=== PATIENT | female | born 1995 | race Caucasian/White ===

== ENCOUNTER 2018-08-19 00:14 | Inpatient (IN) ==
[2018-08-19] MEDS ORDERED: NS 1,000 ML IV ONE ×3 (00:31→14:49)
[2018-08-19] MEDS ORDERED: ZOFRAN IV ONE (00:54)
[2018-08-19 01:06] LABS: BASO# 0.03 X1000 (0.0-0.2); BASO% 0.2 % (0.0-0.8); EOS# 0.04 X1000 (0.0-0.7); EOS% 0.3 % (0.0-10.0); HEMOGLOBIN 14.5 g/dL (12.0-16.0); IMM GRAN# 0.07 X1000 (0.0-0.04); IMM GRAN% 0.5 % (0.0-0.5); LYMPH# 2.76 X1000 (1.2-3.4); LYMPH% 21.1 % (20.5-51.1); MONO# 0.71 X1000 (0.11-0.59); MONO% 5.4 % (1.7-9.3); MPV 9.4 FL (7.4-10.4); NEUT# 9.47 X1000 (1.4-6.5); NEUT% 72.5 % (42.2-75.2); PLT 331 X1000 (130-400); RDW 15.1 % (11.5-14.5); WBC 13.08 X1000 (4.8-10.8)
[2018-08-19 01:09] LABS: ALLEN TEST YES; BE -24.3 mmoll (-3.0-3.0); BLOOD TYPE ARTERIAL; HCO3-(ACT) 5.6 mmoll (20.0-26.0); O2(CT) 15.9 mL/dL (15.0-23.0); SAMPLE BLOOD; SAO2 85.9 % (95.0-100.0); THB 13.6 g/dL (11.5-17.4)
[2018-08-19 01:12] LABS: MODALITY ROOM AIR
[2018-08-19 01:14] LABS: PCO2(98.6) 14 mmHg (35-45); pH(98.6) 7.06 (7.35-7.45)
[2018-08-19 01:15] LABS: O2HB 83.3 % (95.0-99.0); PO2(98.6) 44 mmHg (60-100)
[2018-08-19] MEDS ORDERED: HUMULIN R IV ONE (01:17)
[2018-08-19 01:31] LABS: INR 1.04; PROTIME 14.5 Seconds (11.0-16.0)
[2018-08-19 01:32] LABS: PTT 27.1 Seconds (22.3-41.8)
[2018-08-19 01:40] LABS: ESTIMATED GFR > 60
[2018-08-19 01:43] LABS: AGAP 34; ALB/GLOB RATIO 1.2; ALBUMIN 4.5 g/dL (3.5-5.0); ALKALINE PHOSPHATASE 138 U/L (32-104); BUN 4 mg/dL (8-22); CALCIUM 9.3 mg/dL (8.8-10.2); CHLORIDE 98 mmol/L (98-107); CK PROFILE 57 U/L (24-173); COSMO 285; CREATININE 0.9 mg/dL (0.5-0.9); GLUCOSE 387 mg/dL (70-104); GOT 11 U/L (10-30); GPT 13 U/L (10-36); LIPASE 16 U/L (13-60); MAGNESIUM 1.7 mg/dL (1.5-2.7); PHOSPHORUS 2.9 mg/dL (2.7-4.5); POTASSIUM 4.7 mmol/L (3.5-5.1); SODIUM 136 mmol/L (136-145); TCO2 4 mmol/L (25-35); TOTAL BILIRUBIN 0.23 mg/dL (0.20-1.00); TOTAL PROTEIN 8.2 g/dL (6.3-8.3)
[2018-08-19 01:51] LABS: ACETONE SERUM MODERATE (NEGATIVE)
[2018-08-19 01:59] LABS: URINE SOURCE CLEAN CATCH
[2018-08-19 02:07] LABS: BILIRUBIN URINE NEGATIVE (NEGATIVE); BLOOD URINE TRACE (NEGATIVE); COLOR STRAW; GLUCOSE URINE >1000 mg/dL (NEGATIVE); KETONE URINE >150 mg/dL (NEGATIVE); LEUKOCYTES URINE TRACE (NEGATIVE); NITRITE URINE NEGATIVE (NEGATIVE); PH URINE 5.5; PROTEIN URINE 50 mg/dL (NEGATIVE); SP GRAVITY URINE 1.015; TURBIDITY URINE CLEAR (CLEAR); UR EPITHELIAL CELLS <10 /HPF (<10); URINE BACTERIA NEGATIVE /HPF; URINE RBC <10 /HPF (<10); URINE WBC <10 /HPF (<10); UROBILINOGEN URINE NORMAL (NORMAL)
[2018-08-19] MEDS ORDERED: POTASSIUM CHLORIDE 40 MEQ/SWI 40 MEQ/100 ML IVPB IV PRN (02:15)
[2018-08-19] MEDS ORDERED: ZOFRAN IV PRN ×2 (02:15→02:19)
[2018-08-19] MEDS ORDERED: NS 1,000 ML IV SCH (02:15)
[2018-08-19] MEDS ORDERED: HUMULIN R 100 UNIT in NS 99 ML IV SCH (02:15)
[2018-08-19] MEDS: NS 1,000 ML IV SCH ×4 (02:15→05:15)
[2018-08-19] MEDS ORDERED: D50W SYRINGE IV PRN (02:15)
[2018-08-19] MEDS ORDERED: ZOFRAN PO PRN (02:15)
--- NOTE | 2018-08-19 02:38 | PROVIDER DOCUMENTATION ---
This chart was entered by Sabrina Juarez Scribe, acting as scribe for Bong Fernandez MD. HPI-General Adult - General Chief Complaint: High Blood Sugar Stated Complaint: BLOOD SUGAR FLUCTUATING, UNABLE TO EAT Time Seen by Provider: 08/19/18 00:30 Source: patient, family Allergies/Adverse Reactions: Patient Allergies Allergy/AdvReac Type Severity Reaction Status Date / Time No Known Allergies Allergy Verified 07/11/17 20:28 Home Medications: Home Medication List Medication Instructions Recorded Confirmed Last Taken Type Insulin Aspart [Novolog] 5 unit SQ TID 04/12/17 07/11/17 04/11/17 19:30 History Ibuprofen [Motrin] 800 mg PO Q8H PRN PRN #20 tab 07/11/17 Unknown Rx Insulin Detemir [Levemir Flextouch] 3 ml SUBQ QHS 07/11/17 07/11/17 Unknown History Omeprazole 20 mg PO DAILY #20 tablet. 07/11/17 Unknown Rx Ibuprofen 800 mg PO TID 10 Days #30 tab 08/19/18 Unknown Rx - History of Present Illness -Gen Adult Nature of Presenting Problems: 23 yof presents to er w/family w/ c/o high blood sugar, intermittent times of heavy breathing, abd pain and nausea and vomiting. family at bedside states that she believes pt may have caught stomach virus that had affected household. pt states she has not eaten anything today. pt denies cp, fever, and chills. pt has hx of dm type 1. Review of Systems - Adult - REVIEW OF SYSTEMS - ADULT Constitutional: reports: no symptoms reported. denies: chills, fever Eyes: reports: no symptoms reported Ears, Nose, Mouth & Throat: reports: no symptoms reported Cardiovascular: reports: no symptoms reported. denies: chest pain Respiratory: reports: see HPI, other (heavy breathing). denies: chronic cough, cough, excessive sputum production, hemoptysis, pleurisy Gastrointestinal: reports: see HPI, abdominal pain, nausea, poor appetite, vomiting. denies: constipation, diarrhea, difficulty swallowing, rectal bleeding Genitourinary: reports: no symptoms reported. denies: dysuria Musculoskeletal: reports: no symptoms reported Integumentary: reports: no symptoms reported Neurological: reports: no symptoms reported Psychiatric: reports: no symptoms reported Endocrine: reports: no symptoms reported Hematologic/Lymphatic: reports: no symptoms reported Allergic/Immunologic: reports: no symptoms reported All Other Systems: Reviewed and Negative Past History - Adult - PAST MEDICAL HISTORY-ADULT Review of Records: reports: Old Records Reviewed, Nursing Assessment Review, Medications Reviewed, Social history reviewed & non-contributory. Major Childhood Illnesses: reports: denies history Cardiovascular: reports: denies history Respiratory: reports: denies history Gastrointestinal: reports: denies history Obstetrical/Gynecological: reports: denies history Genitourinary: reports: denies history Musculoskeletal: reports: denies history Neurological: reports: denies history Endocrine/Immune: reports: Diabetes Diabetes Type: Type 1 Diabetes controlled by:: Insulin Dependent Other Conditions: reports: denies history - PRIOR SURGERIES/PROCEDURES Surgical/Procedure History: reports: , tonsillectomy - IMMUNIZATION STATUS Childhood Immunizations: See Nurse Assessment Flu Vaccine: See Nurse Assessment - FAMILY HISTORY Family History: reviewed, not pertinent - SOCIAL HISTORY Smoking: non-smoker Substance Use: none/never Physical Exam-General - PHYSICAL EXAM-ADULT Initial Vital Signs Reviewed: Yes - CONSTITUTIONAL General Appearance: alert, moderate distress. negative: lethargic, slow to respond, obtunded - EYES Eyes: PERRL/EOMI - HEAD, EARS, NOSE, MOUTH & THROAT HENMT: normocephalic/atraumatic, moist mucous membranes, normal ENT inspection - NECK Neck: non-tender, full range of motion, supple, normal inspection - RESPIRATORY Respiratory: chest non-tender, lungs clear, normal breath sounds - CARDIOVASCULAR Cardiovascular: normal peripheral pulses, regular rate, rhythm - GASTROINTESTINAL (ABDOMEN) Abdominal Exam: normal bowel sounds, non tender, soft, no organomegaly, no pulsatile mass - LYMPHATIC Lymphatic: no adenopathy - MUSCULOSKELETAL Back Exam: normal inspection, no CVA tenderness, no vertebral tenderness Extremity: normal range of motion, non-tender, normal inspection Peripheral Pulses: radial (R): 2+, radial (L): 2+ - SKIN Integumentary: normal turgor, warm/dry, diaphoresis, erythema (cheeks flushed). negative: cyanosis, decubitus, dependent lividity, ecchymosis, rash, tenderness - NEUROLOGIC Neurologic: grossly normal, no motor/sensory deficits - PSYCHIATRIC Psych/Mental Status: normal mood/affect, normal thought content, normal thought process, oriented x 3, disheveled Progress - PLAN OF CARE/RESULTS Progress/Plan/Lab Results: Vital Signs - 8 hr 08/19/18 00:18 Temperature 97.6 F Pulse Rate 100 H Respiratory Rate 18 Blood Pressure 132/88 O2 Sat by Pulse Oximetry 99 Orders Category Date Time Status Finger Stick Blood Sugar (ED) DIRECTED Care 08/19/18 00:31 Active Saline Loc NOW Care 08/19/18 00:31 Active ABG [RESP] Routine Lab 08/19/18 00:42 Ordered CBC WITH ELECTRONIC DIFF [HEME] Stat Lab 08/19/18 00:31 Uncollected COMPREHENSIVE METABOLIC PANEL [CHEM] Stat Lab 08/19/18 00:31 Uncollected UA NIMS W/REFLEX CULT [URINALYSIS] Stat Lab 08/19/18 00:31 Uncollected URINALYSIS W/POSS RFLX CULT [URINALYSIS] Stat Lab 08/19/18 00:31 Uncollected 0.9% Sodium Chloride Inj [Ns] 1,000 ml Med 08/19/18 00:31 Active IV 999 mls/hr EKG [EKG] Stat Ther 08/19/18 00:31 Ordered A/P: DKA, care ransfered to Dr Pichardo @ 0230 Result Diagrams: 08/19/18 00:53 08/19/18 00:53 - CHANGE OF SHIFT REPORT (ED Provider) 1 Report Given and Care Transferred to:: Dr Pichardo Time of Transfer: 02:37 Departure - Departure Date of Disposition Decision: 08/19/18 Time of Disposition Decision: 02:37 DIAGNOSIS: DKA (diabetic ketoacidoses) Disposition: ADMITTED INPATIENT 09 Certified Medical Emergency: Emergent Condition: Critical - Critical Care Note This patient required my direct & personal management of CC.: Yes Total Time (mins): 47 Critical Care Statement: This patient required my direct personal management to treat or rule out processes, the absence of which, could potentiallly result in sudden, clinically significant life or limb threatening deterioration. Attestation - Physician/ SAIRA Attestation Patient care was provided by Advanced Practice Provider:: No The physician spent face to face time with patient:: Yes Advanced Practice Provider documentation review:: Supervising physician onsite and consulted in the evaluation and care of this patient. The physician did have a face to face encounter with the patient. This chart was documented by the indicated scribe, (Sabrina Juarez, Frantz) and accurately reflects the services I performed and decisions made by me, Bong Fernandez MD, as attested by the provider's signature.
--- NOTE | 2018-08-19 02:57 | HISTORY AND PHYSICAL ---
PRIMARY CARE PHYSICIAN: Dr. Busby. CHIEF COMPLAINT: Abdominal pain, nausea, vomiting x2 days. HISTORY OF PRESENTING ILLNESS: A 23-year-old female with a history of diabetes mellitus type 1 on insulin, who had presented to the emergency department with 2 days history of worsening nausea, vomiting, abdominal discomfort. She states that she could not keep anything down and was feeling bad. She was evaluated in the emergency department. She was found to be in DKA and due to her presenting symptoms she will need admission for further management. At the time of my examination, she denied any headache, fever, chills, chest pain, shortness of breath, hemoptysis or any weight changes, but complained of nausea, vomiting, abdominal discomfort. PAST MEDICAL HISTORY: Include diabetes mellitus type 1. PAST SURGICAL HISTORY: None. ALLERGIES: No known drug allergies. CURRENT MEDICATIONS: Include NovoLog 5 units t.i.d., omeprazole 20 mg p.o. daily. SOCIAL HISTORY: No history of smoking, alcohol or illicit drug use. FAMILY HISTORY: No history of coronary artery disease. REVIEW OF SYSTEMS: Fourteen point review of systems as listed in HPI. Other systems negative. PHYSICAL EXAMINATION: GENERAL: Cooperative, friendly female. She is resting more comfortably now. VITAL SIGNS: Temperature 97.6 degrees, pulse 100, respiration 18, blood pressure 132/88. HEENT: Atraumatic, normocephalic. Extraocular movements intact. PERRLA. NECK: No masses. CHEST: Clear to auscultation. CARDIOVASCULAR: Regular rate and rhythm. ABDOMEN: Soft. Positive bowel sounds. EXTREMITIES: No edema. NEUROLOGIC: She is awake, alert, oriented x3. GENITOURINARY: No bladder distention. SKIN: Has poor pallor and poor turgor. LABORATORIES AND STUDIES: WBCs 13.08, hemoglobin 14.5, hematocrit 44.0, platelets 331,000. ABG show pH of 7.06, pCO2 of 14. Sodium 136, potassium 4.7, chloride 98, CO2 is 4, BUN is 4, creatinine 0.9, glucose is 387. ASSESSMENT: This is a 23-year-old female with a history of diabetes mellitus type 1 who had presented to the emergency department with 2 days history of worsening abdominal pain, nausea, vomiting. She seemed moderately dehydrated. She was evaluated in the emergency department. Her laboratories were consistent with ketoacidosis. Subsequently, she will need admission for further management. Diabetic ketoacidosis. PLAN: 1. We will admit patient to [facility]. 2. We will start patient on insulin drip and IV fluids. 3. Continue with protocol for DKA. 4. We will continue to follow, and reassess and make further recommendation based on the patient's clinical course. cc: Quentin Loyd MD
[2018-08-19] MEDS: D5 NS 1,000 ML IV SCH ×2 (04:30→11:38)
[2018-08-19] MEDS: POTASSIUM CHLORIDE 10% LIQUID PO PRN ×3 (04:36→23:16)
[2018-08-19 05:23] LABS: ALLEN TEST YES; BE -19.9 mmoll (-3.0-3.0); BLOOD TYPE ARTERIAL; HCO3-(ACT) 9.4 mmoll (20.0-26.0); METHB 1.1 % (0.0-1.5); O2(CT) 16.7 mL/dL (15.0-23.0); PO2(98.6) 116 mmHg (60-100); SAMPLE BLOOD; SAO2 99.6 % (95.0-100.0); THB 12.1 g/dL (11.5-17.4)
[2018-08-19 05:25] LABS: pH(98.6) 7.17 (7.35-7.45)
[2018-08-19 05:26] LABS: MODALITY ROOM AIR; PCO2(98.6) 18 mmHg (35-45)
[2018-08-19 06:13] LABS: ESTIMATED GFR > 60
[2018-08-19 06:36] LABS: AGAP 23; BUN 3 mg/dL (8-22); CALCIUM 8.1 mg/dL (8.8-10.2); CHLORIDE 107 mmol/L (98-107); COSMO 276; CREATININE 0.7 mg/dL (0.5-0.9); GLUCOSE 204 mg/dL (70-104); MAGNESIUM 1.6 mg/dL (1.5-2.7); PHOSPHORUS 1.3 mg/dL (2.7-4.5); POTASSIUM 4.4 mmol/L (3.5-5.1); SODIUM 137 mmol/L (136-145); TCO2 7 mmol/L (25-35)
[2018-08-19 10:23] LABS: ALLEN TEST YES; BE -13.7 mmoll (-3.0-3.0); BLOOD TYPE ARTERIAL; HCO3-(ACT) 14.2 mmoll (20.0-26.0); METHB 0.7 % (0.0-1.5); O2(CT) 16.4 mL/dL (15.0-23.0); O2HB 97.3 % (95.0-99.0); PCO2(98.6) 24 mmHg (35-45); PO2(98.6) 112 mmHg (60-100); SAMPLE BLOOD; SAO2 99.5 % (95.0-100.0); THB 11.9 g/dL (11.5-17.4); pH(98.6) 7.28 (7.35-7.45)
[2018-08-19 10:24] LABS: MODALITY ROOM AIR
[2018-08-19 11:13] LABS: ESTIMATED GFR > 60
[2018-08-19 11:14] LABS: AGAP 17; BUN 3 mg/dL (8-22); CALCIUM 8.5 mg/dL (8.8-10.2); CHLORIDE 108 mmol/L (98-107); COSMO 271; CREATININE 0.7 mg/dL (0.5-0.9); GLUCOSE 177 mg/dL (70-104); MAGNESIUM 1.6 mg/dL (1.5-2.7); PHOSPHORUS 1.2 mg/dL (2.7-4.5); SODIUM 135 mmol/L (136-145); TCO2 10 mmol/L (25-35)
[2018-08-19 14:25] LABS: AGAP 10; BUN 2 mg/dL (8-22); CALCIUM 8.3 mg/dL (8.8-10.2); CHLORIDE 115 mmol/L (98-107); COSMO 279; CREATININE 0.6 mg/dL (0.5-0.9); ESTIMATED GFR > 60; GLUCOSE 185 mg/dL (70-104); MAGNESIUM 1.6 mg/dL (1.5-2.7); POTASSIUM 3.6 mmol/L (3.5-5.1); SODIUM 139 mmol/L (136-145); TCO2 14 mmol/L (25-35)
[2018-08-19 14:29] LABS: ALLEN TEST YES; BE -9.8 mmoll (-3.0-3.0); BLOOD TYPE ARTERIAL; HCO3-(ACT) 17.2 mmoll (20.0-26.0); O2(CT) 23.6 mL/dL (15.0-23.0); O2HB 96.7 % (95.0-99.0); PCO2(98.6) 28 mmHg (35-45); PO2(98.6) 108 mmHg (60-100); SAMPLE BLOOD; SAO2 99.1 % (95.0-100.0); THB 17.3 g/dL (11.5-17.4); pH(98.6) 7.32 (7.35-7.45)
[2018-08-19 14:38] LABS: PHOSPHORUS 0.8 mg/dL (2.7-4.5)
[2018-08-19 14:38] LABS: MODALITY ROOM AIR
[2018-08-19] MEDS ORDERED: MAGNESIUM SULFATE 2 GM/S.W.I. 2 GM/50 ML IVPB IV ONE (14:54)
[2018-08-19] MEDS ORDERED: POTASSIUM PHOSPHATE 30 MEQ in NS 250 ML IV ONE (14:54)
--- NOTE | 2018-08-19 15:13 | PROGRESS NOTE ---
DATE: 08/19/2018 Today Ms. Pacheco refers to be doing fairly okay. Ms Pacheco is a 23-year-old female who is known to have diabetes mellitus type 1, follows up with Dr. Busby, manager of human resources in [place]. Ms Pacheco is only on NovoLog 3 times per day so presently she is not on any long- acting. Anyway she seems to be doing fairly okay until recently she started having some nauseation and then found out that her sugars have been up and down, came to the emergency department was found to be in DKA. She seems to be doing a lot better now. OBJECTIVE: Vitals: Blood pressure is 114/79, pulse is 100, respiration is 20, temperature is 98.2 degrees. General: Ms. Pacheco is a 23-year-old female she is in bed, no distress. Mucosa is pink and moist. Anicteric. Acyanotic. Neck: Supple. Chest: Clear to auscultation. No crepitations, no rhonchi. Cardiovascular: Regular rate and rhythm. No murmurs, no rubs, no gallops. Abdomen: Soft, nontender. Bowel sounds present. Extremities: No pedal edema. Distal pulses present. AIRFREIGHT OPERATIONS AGENT: Patient is awake, alert, oriented. There is no focal neurological deficit. LABORATORY DATA: WBC is 13.08, hemoglobin is 14.5, platelet count of 331,000. Chemistry is also reviewed, sodium is 139, potassium is 3.6, chloride is 115, bicarb is 14, gap is down to 10, glucose is 185. ASSESSMENT: 1. Diabetic ketoacidosis. 2. Diabetes mellitus type 1. 3. Obesity with body mass index of 32.9. 4. Clinical volume depletion. 5. Hypophosphatemia secondary to diabetic ketoacidosis management. The plan is we are going to continue with the DKA protocol, we are going to replenish all the electrolytes abnormalities. For now I think Ms Pacheco can be given something she can drink and can take a popsicle. Once bicarb is above 18 and the gap continues to close then we will change the treatment according to the protocol. cc: MD PATI [place]
[2018-08-19 17:52] LABS: AGAP 8; BUN 2 mg/dL (8-22); CALCIUM 8.1 mg/dL (8.8-10.2); CHLORIDE 118 mmol/L (98-107); COSMO 284; CREATININE 0.6 mg/dL (0.5-0.9); ESTIMATED GFR > 60; GLUCOSE 179 mg/dL (70-104); MAGNESIUM 1.5 mg/dL (1.5-2.7); POTASSIUM 3.1 mmol/L (3.5-5.1); SODIUM 142 mmol/L (136-145); TCO2 16 mmol/L (25-35)
[2018-08-19 17:56] LABS: PHOSPHORUS 0.8 mg/dL (2.7-4.5)
[2018-08-19 22:53] LABS: AGAP 11; BUN 2 mg/dL (8-22); CALCIUM 8.2 mg/dL (8.8-10.2); CHLORIDE 113 mmol/L (98-107); COSMO 280; CREATININE 0.6 mg/dL (0.5-0.9); ESTIMATED GFR > 60; GLUCOSE 209 mg/dL (70-104); PHOSPHORUS 1.3 mg/dL (2.7-4.5); POTASSIUM 3.6 mmol/L (3.5-5.1); SODIUM 139 mmol/L (136-145); TCO2 15 mmol/L (25-35)
[2018-08-20] MEDS: D5 1/2 NS + KCL 20 MEQ 1,000 ML IV SCH ×3 (00:30→11:15)
[2018-08-20 01:25] LABS: AGAP 12; BUN 2 mg/dL (8-22); CALCIUM 8.3 mg/dL (8.8-10.2); CHLORIDE 115 mmol/L (98-107); COSMO 285; CREATININE 0.5 mg/dL (0.5-0.9); ESTIMATED GFR > 60; GLUCOSE 172 mg/dL (70-104); MAGNESIUM 1.8 mg/dL (1.5-2.7); POTASSIUM 3.7 mmol/L (3.5-5.1); SODIUM 143 mmol/L (136-145); TCO2 16 mmol/L (25-35)
[2018-08-20] MEDS: POTASSIUM CHLORIDE 10% LIQUID PO PRN ×3 (02:10→06:32)
[2018-08-20 05:54] LABS: BASO# 0.02 X1000 (0.0-0.2); BASO% 0.4 % (0.0-0.8); EOS# 0.14 X1000 (0.0-0.7); EOS% 2.5 % (0.0-10.0); HEMOGLOBIN 11.6 g/dL (12.0-16.0); LYMPH# 1.66 X1000 (1.2-3.4); LYMPH% 29.3 % (20.5-51.1); MCH 29.6 PG (27-31); MCHC 34.1 g/dL (33-37); MCV 86.7 FL (81-99); MONO% 8.8 % (1.7-9.3); MPV 9.3 FL (7.4-10.4); NEUT# 3.34 X1000 (1.4-6.5); PLT 174 X1000 (130-400); RBC 3.92 XMIL (4.2-5.4); WBC 5.66 X1000 (4.8-10.8)
[2018-08-20 06:05] LABS: AGAP 12; BUN 2 mg/dL (8-22); CALCIUM 8.1 mg/dL (8.8-10.2); CHLORIDE 114 mmol/L (98-107); COSMO 284; CREATININE 0.6 mg/dL (0.5-0.9); ESTIMATED GFR > 60; GLUCOSE 187 mg/dL (70-104); MAGNESIUM 1.7 mg/dL (1.5-2.7); POTASSIUM 3.4 mmol/L (3.5-5.1); SODIUM 142 mmol/L (136-145); TCO2 16 mmol/L (25-35)
[2018-08-20] MEDS ORDERED: MAGNESIUM SULFATE 2 GM/S.W.I. 2 GM/50 ML IVPB IV PRN (06:30)
[2018-08-20] MEDS ORDERED: SODIUM PHOSPHATE 30 MMOL in D5W 250 ML IV PRN (06:30)
[2018-08-20] MEDS ORDERED: BASAGLAR SUBQ ONE (08:56)
--- NOTE | 2018-08-20 09:39 | PROGRESS NOTE ---
DATE: 08/20/2018 SUBJECTIVE: This morning, Ms. Pacheco refers to be doing a lot better. She denies any more nauseation. No fever. Vital signs have been stable. OBJECTIVE: Vital Signs: Blood pressure is 119/82, pulse is 93, respirations are 18, temperature is 98.5 degrees. General Examination: Ms. Pacheco is a 23-year-old, female. She is in bed, in no distress. HEENT: Mucosa is pink and moist. Anicteric. Acyanotic. Neck: Supple. Chest: Clear to auscultation. No crepitations. No rhonchi. Cardiovascular: Regular rate and rhythm. No murmurs, no rubs, no gallops. GI: Abdomen is soft, nontender. Bowel sounds present. Extremities: No pedal edema. Distal pulses present. ORE GRADER: Patient is awake, alert, and oriented. There is no focal neurological deficit. Laboratory Data: Has been reviewed. The patient's sodium is 142, potassium is 3.4, chloride is 114, bicarb is up to 16 from 4 on presentation. Her renal function tests have normalized. Phosphorus is 1.0, which will be replaced. ASSESSMENT: 1. Diabetic ketoacidosis. Gap is now closed. Bicarb is 16, which is acceptable. We are going to start the patient on 20 units of glargine. Feed her and maintain the drip for 2 hours after which this will be discontinued and just use sliding scale plus 5 units of lispro with meals. We will titrate the patient's insulin needs. 2. Diabetes mellitus type 1. Patient follows up with Dr. Busby. She was only 3 times Humalog injections, not on any long-acting, not quite sure why that regimen. We will, however, start her here on some long-acting and let her follow up with Dr. Busby. 3. Obesity with a body mass index of 32.8. 4. Clinical volume depletion, improved. 5. Hypophosphatemia. We will continue to replace this. PLAN: In general, this morning, Ms. Pacheco is doing a lot better. We are going to start feeding her. The DKA is resolved so we will start her on a diabetic diet, give her 20 units of insulin after she eats, allow the drip to follow for 2 hours, at the end of which we will turn it off and just use sliding scale and pattern. I have explained the plan to Roberto Junior and she voiced understanding. cc: Clint Patel MD
[2018-08-20 10:12] LABS: AGAP 10; BUN 1 mg/dL (8-22); CALCIUM 8.2 mg/dL (8.8-10.2); CHLORIDE 110 mmol/L (98-107); COSMO 276; CREATININE 0.5 mg/dL (0.5-0.9); ESTIMATED GFR > 60; GLUCOSE 211 mg/dL (70-104); MAGNESIUM 2.4 mg/dL (1.5-2.7); SODIUM 137 mmol/L (136-145); TCO2 17 mmol/L (25-35)
[2018-08-20] MEDS: HUMALOG SUBQ SCH ×6 (10:41→16:12)
[2018-08-20 13:52] LABS: AGAP 12; BUN 3 mg/dL (8-22); CALCIUM 8.5 mg/dL (8.8-10.2); CHLORIDE 109 mmol/L (98-107); COSMO 278; CREATININE 0.6 mg/dL (0.5-0.9); ESTIMATED GFR > 60; GLUCOSE 210 mg/dL (70-104); POTASSIUM 3.7 mmol/L (3.5-5.1); SODIUM 138 mmol/L (136-145); TCO2 17 mmol/L (25-35)
[2018-08-20 18:09] LABS: AGAP 14; BUN 6 mg/dL (8-22); CALCIUM 8.3 mg/dL (8.8-10.2); CHLORIDE 111 mmol/L (98-107); COSMO 283; CREATININE 0.7 mg/dL (0.5-0.9); ESTIMATED GFR > 60; GLUCOSE 240 mg/dL (70-104); POTASSIUM 3.6 mmol/L (3.5-5.1); SODIUM 139 mmol/L (136-145); TCO2 14 mmol/L (25-35)
[2018-08-20] MEDS ORDERED: HUMALOG SUBQ SCH (18:31)
[2018-08-20] MEDS ORDERED: APIDRA SUBQ ONE (19:00)
[2018-08-20] MEDS: 1/2 NS + KCL 20 MEQ 1,000 ML IV SCH (19:38)
[2018-08-20] MEDS: APIDRA SUBQ SCH (21:11)
[2018-08-21] MEDS: 1/2 NS + KCL 20 MEQ 1,000 ML IV SCH (05:14)
[2018-08-21 05:36] LABS: MAGNESIUM 1.8 mg/dL (1.5-2.7); PHOSPHORUS 3.1 mg/dL (2.7-4.5)
[2018-08-21 05:43] LABS: AGAP 10; ALBUMIN 2.8 g/dL (3.5-5.0); ALKALINE PHOSPHATASE 86 U/L (32-104); BUN 5 mg/dL (8-22); CHLORIDE 112 mmol/L (98-107); COSMO 281; CREATININE 0.4 mg/dL (0.5-0.9); ESTIMATED GFR > 60; GLUCOSE 114 mg/dL (70-104); GOT 10 U/L (10-30); GPT 6 U/L (10-36); POTASSIUM 3.5 mmol/L (3.5-5.1); SODIUM 142 mmol/L (136-145); TCO2 20 mmol/L (25-35); TOTAL BILIRUBIN 0.24 mg/dL (0.20-1.00); TOTAL PROTEIN 5.6 g/dL (6.3-8.3)
[2018-08-21] MEDS: APIDRA SUBQ SCH (06:12)
[2018-08-21 07:59] VITALS: BP 106/82
[2018-08-21] MEDS ORDERED: HUMALOG SUBQ SCH (08:00)
--- NOTE | 2018-08-21 08:04 | EKG Report ---
Test Performed on : 08/19/2018 02:15:57 AM Test Reason : chest pain Blood Pressure : / mmHG Vent. Rate : 111 BPM Atrial Rate : 111 BPM P-R Int : 146 ms QRS Dur : 082 ms QT Int : 346 ms P-R-T Axes : 060 017 044 degrees QTc Int : 470 ms Sinus tachycardia. Otherwise normal ECG No previous ECGs available Unconfirmed Result
--- NOTE | 2018-08-21 15:02 | DISCHARGE SUMMARY ---
ADMISSION DATE: 08/19/2018 DISCHARGE DATE: 08/21/2018 ADMITTING DIAGNOSIS: Diabetic ketoacidosis. DISCHARGE DIAGNOSES: 1. Diabetic ketoacidosis. 2. Diabetes type I 3. Clinical Volume depletion 4. Hypophosphatemia, resolved. CONSULTATIONS: None. SURGERIES OR PROCEDURES: None. HOSPITAL COURSE: Ms. Jaida Pacheco is a 23-year-old female with a history of diabetes mellitus type 2 on insulin, who presented to the emergency department with 2 days' history of worsening nausea, vomiting and abdominal discomfort. She claims she could not keep anything down and was feeling really bad. When she presented, she presented with symptoms and labs showing diabetic ketoacidosis, and she was admitted for further treatment. She was admitted to [facility], started on an insulin drip, IV fluids and was essentially continued on the DKA protocol. She did have leukocytosis on presentation but no source of infection. The highest her potassium was was on admit which was 4.7. Her glucose on admit was 387. Her anion gap was as high as 34 with her anion gap metabolic acidosis. Kidney function remained stable, and DKA is resolved, and she will be discharged home. DISCHARGE VITAL SIGNS: Temperature is 98.3, heart rate 85, respiratory rate 14, blood pressure 106/82, O2 saturation is 100% on room air. LAB DATA: CBC was on 08/20/2018. White blood cells were 5000, hemoglobin 11, hematocrit 34, platelet count 174. BMP performed today showed sodium 142, potassium 3.5, BUN of 5, creatinine 0.4, glucose 114, calcium 8.0, phosphorus 3.1. Magnesium 1.8. Bilirubin is 0.24. AST is 10, ALT is 6, albumin 2.8. IMAGING: None. But she had an EKG which showed sinus tachycardia rate 111, QTC of 470. DISCHARGE MEDICATIONS: 1. Levemir FlexTouch 10 units subcutaneously nightly. 2. NovoLog 7 units subcutaneously t.i.d. 3. Omeprazole 20 mg p.o. daily. 4. Ibuprofen 800 mg p.o. t.i.d. p.r.n. DISCHARGE FOLLOWUP: Dr. Busby, her primary care provider. DISCHARGE INSTRUCTIONS: Follow ADA diet or diabetic diet. There is no activity limitation. Any signs or symptoms return that are related to DKA such as nausea, vomiting, abdominal pain, discomfort or hyperglycemia, to return to the emergency department for further treatment. Take insulin as prescribed. Please do not run out of your insulin and take it as prescribed. DISCHARGE DISPOSITION: Home. Dictated by JONATHON Askew for Clint Patel MD cc: JONATHON Askew MD Nidhi Jindal, MD I have seen and examined Ms Pacheco. DKA resolved. She is stable for discharge today. Her vitals are stable. I have reviewed and reconciled her home medications. Discharge instructions have been discussed with her. She voiced understanding. Discharge time: 34 minutes MTDD
== END 2018-08-21 11:09 | disposition home or self-care (01) | DRG 639 ==
LOC: ED 00:14 → EDIPHOLD 02:17 → SUATTDRO 02:17 → 3S 21:02
PROVIDERS: ATTEND Internal Medicine
CPT/HCPCS: 80048; 80053; 81001; 81025; 82009; 82550; 82805; 82948; 83605; 83690; 83735; 84100; 84484; 85025; 85610; 85730; 87088; 93005; 96361; 96365; 96366; 96368; 96375; 99285; 99291; A9270; J1815; J2405; J3475; J3480; J7030; J7042; J7050; J7060; XXXXX